=== PATIENT | female | born 1960 | race African-American/Black ===

== ENCOUNTER 2025-04-28 09:23 | Inpatient (IN) | payer OTHER ==
[2025-04-22 15:06] VITALS: BMI 31.8
[2025-04-28] MEDS ORDERED: KETOROLAC TROMETHAMINE 60 MG/2 ML VIAL ONE (10:03)
[2025-04-28] MEDS ORDERED: VANCOMYCIN 1,000 MG VIAL (RESTRICTED TO ID ONLY) ONE (10:03)
[2025-04-28] MEDS ORDERED: BUPIVACAINE HCL/PF 2.5 MG/ML - 30 ML VIAL IJ ONE (10:04)
[2025-04-28] MEDS ORDERED: ONDANSETRON 4 MG/2 ML VIAL IVPUSH PRN (10:19)
[2025-04-28] MEDS ORDERED: oxyCODONE HCL 5 MG TABLET PO PRN (10:19)
[2025-04-28] MEDS ORDERED: PROMETHAZINE HCL 25 MG/1 ML VIAL IVPB PRN (10:19)
[2025-04-28] MEDS ORDERED: SEVOFLURANE 250 ML BTL ONE (10:26)
[2025-04-28] MEDS ORDERED: PROPOFOL 60 ML ONE (10:28)
[2025-04-28] MEDS ORDERED: MIDAZOLAM HCL 2 MG/2 ML SINGLE DOSE VIAL ONE (10:28)
[2025-04-28] MEDS ORDERED: LIDOCAINE HCL/PF 2% SDV 5ML VIAL ONE (10:31)
[2025-04-28] MEDS ORDERED: ROPIVACAINE HCL/PF 100 MG/20 ML VIAL ONE (11:02)
[2025-04-28] MEDS ORDERED: BUPIVACAINE HCL/PF 0.5% (5MG/ML) 10 ML VIAL ONE (11:02)
[2025-04-28] MEDS ORDERED: ceFAZolin SODIUM 1 GM VIAL ONE (12:25)
[2025-04-28] MEDS ORDERED: DEXAMETHASONE SOD PHOSPHATE 4 MG/1 ML VIAL ONE (12:28)
[2025-04-28] MEDS ORDERED: PROPOFOL 20 ML ONE ×2 (13:48→15:02)
[2025-04-28] MEDS: VANCOMYCIN 1,000 MG VIAL (RESTRICTED TO ID ONLY) IVPB ONE ×4 (14:36→14:50)
[2025-04-28] MEDS ORDERED: ALBUTEROL SO4 HFA INHALER IH PRN (14:48)
[2025-04-28] MEDS ORDERED: MAGNESIUM HYDROX 2400MG/30ML ORAL SUSPENSION 30 ML CUP PO PRN (14:49)
[2025-04-28] MEDS ORDERED: MAG HYDROX/AL HYDROX/SIMETH 30 ML UNIT-DOSE CUP PO PRN (14:49)
[2025-04-28] MEDS ORDERED: ACETAMINOPHEN INJECTION 100 ML ONE (15:49)
[2025-04-28] MEDS: ACETAMINOPHEN 1000 MG/100 ML BAG IVPB SCH (15:54)
[2025-04-28] MEDS: LACTATED RINGERS SOLUTION 1,000 ML IV SCH (16:15)
[2025-04-28] MEDS: ONDANSETRON 4 MG/2 ML VIAL IVPUSH PRN (17:39)
[2025-04-28] MEDS ORDERED: ASPIRIN 81 MG CHEWABLE TABLETS PO SCH ×2 (18:00→22:00)
[2025-04-28] MEDS: CEFAZOLIN 2 GM in DEXTROSE 5%-WATER - 50 ML IVPB ONE (18:23)
[2025-04-28] MEDS: TRANEXAMIC ACID 1000 MG/10 ML VIAL IVPUSH ONE (18:23)
[2025-04-28] MEDS ORDERED: ASPIRIN COATED 81 MG TABLET.EC PO SCH (20:00)
[2025-04-28] MEDS: CEFAZOLIN SODIUM 2 GM in DEXTROSE 5%-WATER 100 ML IVPB SCH (20:02)
[2025-04-28] MEDS: APIXABAN 2.5 MG TABLET PO SCH (21:13)
[2025-04-28] MEDS: SENNOSIDES/DOCUSATE COMBO (SENNA PLUS) TABLET (UD) PO SCH (21:13)
[2025-04-28] MEDS: FAMOTIDINE 20 MG TABLET PO SCH (21:13)
[2025-04-28] MEDS: LISINOPRIL 20 MG TABLET PO SCH (21:14)
[2025-04-28] MEDS ORDERED: LISINOPRIL 20 MG TABLET PO SCH (22:00)
[2025-04-29 02:12] VITALS: RESP 18
[2025-04-29] MEDS: oxyCODONE HCL 5 MG TABLET PO PRN (03:12)
[2025-04-29] MEDS: LACTATED RINGERS SOLUTION 1,000 ML IV SCH (06:40)
[2025-04-29] MEDS ORDERED: DEXAMETHASONE 4 MG TABLET (FP) PO ONE (10:00)
[2025-04-29] MEDS: MULTIVITAMINS (DAILY MVI) TABLET (FP) PO SCH (10:20)
[2025-04-29] MEDS: DEXAMETHASONE SOD PHOSPHATE 10 MG/1 ML VIAL IVPUSH ONE (10:20)
[2025-04-29 14:34] VITALS: BP 125/67; PULSE 60; TEMP 98
== END 2025-04-29 18:30 | disposition home or self-care (01) | DRG 470 ==
LOC: FASUSAT 09:23 → FM/S 14:49
PROVIDERS: ADMIT Internal Medicine; ATTEND Internal Medicine
PROC: 8E0Y0CZ Robotic Assisted Procedure of Lower Extremity, Open Approach (ICD-10-PCS; 2025-04-28)
PROC: 0SRC0J9 Replacement of Right Knee Joint with Synthetic Substitute, Cemented, Open Approach (ICD-10-PCS; principal; 2025-04-28 12:54)
DX: M17.11 Unilateral primary osteoarthritis, right knee (principal)
CPT/HCPCS: 73560-TC-RT-FY; 94760; 97010-GP; 97116-GP; 97162-GP; C1776; J1100